=== PATIENT | female | born 1945 | race Caucasian/White ===

== ENCOUNTER 2019-10-25 06:20 | Day surgery (SDC) | payer MEDICARE, OTHER ==
[~2019-10-25] VITALS: Ht 172.7 cm; Wt 86.9 kg
[2019-10-25] MEDS ORDERED: LIDOcaine 1% W/epiNEPHrine 1:200,000 10ml vial IJ ONE (06:40)
[2019-10-25] MEDS ORDERED: ATOR40TA7 PO (06:40)
[2019-10-25] MEDS ORDERED: LISI10TA4 PO (06:40)
[2019-10-25 07:00] VITALS: BP 149/64
[2019-10-25] MEDS ORDERED: LIDOcaine/PRILOcaine 5gm cream TP ONE (08:17)
[2019-10-25] MEDS ORDERED: LIDOcaine 1%/PF 5ML 10 MG/ML VIAL ONE (08:18)
[2019-10-25 09:05] VITALS: BP 151/59
[2019-10-25 09:15] VITALS: BP 129/58
[2019-10-25 09:30] VITALS: BP 127/57
== END 2019-10-25 09:46 | disposition home or self-care (01) ==
LOC: SSTAY O 06:20
PROVIDERS: ATTEND Radiology Vascular & Interventional Radiology
DX: Z49.02 Encounter for fitting and adjustment of peritoneal dialysis catheter (principal)
CPT/HCPCS: 36590